=== PATIENT | male | born 1985 | race Hispanic/Latino ===

== ENCOUNTER 2020-01-29 20:51 | Inpatient (IN) | payer OTHER, SELFPAY ==
[2020-01-29 21:26] LABS: Hemoglobin 8.2 g/dL (14.0-18.0); Mean Corpuscular HGB CONC 33.6 g/dL (32.0-36.0); Mean Corpuscular Hemoglobin 32.9 pg (27.0-31.0); Mean Corpuscular Volume 97.9 fL (78.0-98.0); RBC Distribution Width 12.1 % (11.5-14.5); White Blood Cell (WBC) Count 8.8 thou/uL (4.8-10.8)
[2020-01-29] MEDS ORDERED: Piperacillin/Tazobactam 3.375 GM VIAL ONE (21:27)
[2020-01-29 21:41] LABS: Hemoglobin A1c 4.6 % (4.0-6.0)
[2020-01-29 21:51] LABS: Mean Platelet Volume 8.4 fL (7.4-10.4); Platelet Count 67 thou/uL (130-400)
[2020-01-29 21:53] LABS: ALT (SGPT) 16 U/L (8-55); AST (SGOT) 70 U/L (5-34); Albumin 2.2 g/dL (3.5-5.0); Alkaline Phosphatase 385 U/L (40-110); Anion Gap 11 mmol/L (10-20); BUN (Urea Nitrogen) 11 mg/dL (8.9-20.6); Band 13 % (5-11); Bilirubin, Total 1.6 mg/dL (0.2-1.2); Calc. Creatinine Clearance 0 mL/min (70-130); Calcium 7.2 mg/dL (7.8-10.44); Carbon Dioxide 20 mmol/L (22-29); Chloride 109 mmol/L (98-107); Eosinophils 4 % (0-10); Estimated GFR-MDRD Greater than 90; Globulin 5.1 g/dL (2.4-3.5); Glucose 115 mg/dL (70-105); Lymphocytes 20 % (21-51); MDiff Complete? YES; Monocytes 16 % (0-10); Neutrophil 44 % (42-75); Platelet Morphology Comment Appears Decreased; Polychromasia MODERATE = 3-4 cells (100X) (0-2/hpf); Potassium 3.9 mmol/L (3.5-5.1); Protein, Total 7.3 g/dL (6.0-8.3); Reactive Lymphocytes 3 % (0-10); Sodium 136 mmol/L (136-145)
[2020-01-29] MEDS ORDERED: Lorazepam 2 MG/ML VIAL ONE (23:57)
[2020-01-30] MEDS ORDERED: Acetaminophen 650 MG Suppository PR PRN (03:08)
[2020-01-30] MEDS ORDERED: Lorazepam 2 MG/ML VIAL SLOW IVP PRN (03:15)
[2020-01-30 03:23] LABS: Bacteria/HPF 1+ HPF (None Seen); Bilirubin Negative (Negative); Blood, Urine 3+ (Negative); Clarity Clear (Clear); Glucose, Urine (Dipstick) Normal (Negative); Ketone, Urine Negative (Negative); Leukocyte Negative Leu/uL (Negative); Nitrite Negative (Negative); Protein, Urine (Dipstick) Negative (Neg-Trace); RBC/HPF 21-50 HPF (0-3); Specific Gravity, Urine 1.007 (1.002-1.036); Squamous Epithelial None Seen HPF (0-3); Urobilinogen Normal mg/dL (Less than 2); WBC/HPF 0-3 HPF (0-3); pH, Urine 5.5 (5.0-9.0)
[2020-01-30 03:24] LABS: Urine Culture Reflex Yes Yes
[2020-01-30] MEDS ORDERED: Potassium Chloride 20 MEQ in Premix Bag 1 BAG IVPB SCH ×2 (03:30→06:30)
[2020-01-30 03:33] LABS: Amphetamine Not Detected (NotDetected); Barbiturates Screen Not Detected (NotDetected); Benzodiazepine Screen Not Detected (NotDetected); Cocaine Metabolite Screen Not Detected (NotDetected); Medtox Control Line Valid? VALID (VALID); Medtox Reader # READER 4; Methadone Not Detected (NotDetected); Methamphetamine Not Detected (NotDetected); Opiate Screen Not Detected (NotDetected); Oxycodone Screen Not Detected (NotDetected); Phencyclidine (PCP) Not Detected (NotDetected); THC/Cannabinoid Screen Not Detected (NotDetected); Tricyclic Screen Not Detected (NotDetected)
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
[2020-01-30 03:43] VITALS: BMI 40.0
[2020-01-30 04:13] LABS: INR-International Normal Ratio 1.6; Prothrombin Time 19.1 sec (12.0-14.7)
[2020-01-30 04:14] LABS: PTT 53.7 sec (22.9-36.1)
[2020-01-30] MEDS: Piperacillin/Tazobactam 3.375 GM in Sodium Chloride 0.9% 100 ML IVPB SCH ×4 (04:26→21:10)
[2020-01-30] MEDS: Sodium Chloride 0.45% 1,000 ML IV SCH ×3 (04:26→20:40)
[2020-01-30 04:29] LABS: ALT (SGPT) 13 U/L (8-55); AST (SGOT) 56 U/L (5-34); Albumin 1.8 g/dL (3.5-5.0); Alcohol 271 mg/dL (Less than 10); Alkaline Phosphatase 306 U/L (40-110); Bilirubin, Direct 1.2 mg/dL (0.1-0.3); Bilirubin, Total 1.3 mg/dL (0.2-1.2); Protein, Total 6.4 g/dL (6.0-8.3)
[2020-01-30 04:30] LABS: Anion Gap 10 mmol/L (10-20); BUN (Urea Nitrogen) 9 mg/dL (8.9-20.6); Calc. Creatinine Clearance 261 mL/min (70-130); Carbon Dioxide 21 mmol/L (22-29); Chloride 114 mmol/L (98-107); Estimated GFR-MDRD Greater than 90; Glucose 87 mg/dL (70-105); Lipase 29 U/L (8-78); Potassium 3.6 mmol/L (3.5-5.1); Sodium 141 mmol/L (136-145)
[2020-01-30 04:41] LABS: Band 5 % (5-11); Eosinophils 3 % (0-10); Hemoglobin 7.4 g/dL (14.0-18.0); Hypochromia SLIGHT = 6-15 cells (100X) (0-5/hpf); Lymphocytes 21 % (21-51); MDiff Complete? YES; Mean Corpuscular HGB CONC 32.7 g/dL (32.0-36.0); Mean Corpuscular Hemoglobin 32.2 pg (27.0-31.0); Mean Corpuscular Volume 98.4 fL (78.0-98.0); Mean Platelet Volume 8.3 fL (7.4-10.4); Monocytes 8 % (0-10); Neutrophil 63 % (42-75); Platelet Count 46 thou/uL (130-400); Platelet Morphology Comment Appears Adequate; RBC Distribution Width 11.9 % (11.5-14.5); Red Blood Cell (RBC) Count 2.29 mill/uL (4.70-6.10); White Blood Cell (WBC) Count 5.7 thou/uL (4.8-10.8)
--- NOTE | 2020-01-30 07:42 | ULT ---
DOPPLER VENOUS ULTRASOUND OF BOTH LOWER EXTREMITIES: Date: 01/30/2020 INDICATION: Bilateral lower extremity pain and edema. COMPARISON: None. TECHNIQUE: Neal scale, color Doppler, and vascular duplex with spectral analysis was performed of the deep venou s structures of the bilateral lower extremities. The common femoral vein, superficial femoral vein, p roximal greater saphenous vein, proximal greater profunda vein, popliteal, and posterior tibial veins were assessed. FINDINGS: There are mildly prominent lymph nodes within the bilateral inguinal regions. There is normal [place], flow, and augmentation seen within the deep venous structures of both lower extremities. There is subcutaneous edema seen within the soft tissues of both forelegs. IMPRESSION: 1. No evidence of deep venous thrombosis within both lower extremities. 2. Bilateral foreleg subcutaneous edema. 3. Bilateral inguinal lymphadenopathy. POS: BH
[2020-01-30] MEDS: Famotidine/PF 20 mg/2ml Vial SLOW IVP SCH ×2 (08:13→20:37)
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
[2020-01-30] MEDS: Acetaminophen 325 MG TAB PO PRN ×3 (09:28→20:38)
[2020-01-30 17:10] LABS: SARS-CoV-2 MS2 Positive; SARS-CoV-2 N Gene Negative; SARS-CoV-2 S Gene Negative; SARS-CoV-2 by NAA Not Detected (NotDetected); SARS-CoV-2 orf1ab Negative
[2020-01-30 23:37] LABS: Vancomycin, Trough 30.6 ug/mL
[2020-01-31] MEDS: Piperacillin/Tazobactam 3.375 GM in Sodium Chloride 0.9% 100 ML IVPB SCH ×4 (03:45→21:30)
[2020-01-31] MEDS: Acetaminophen 325 MG TAB PO PRN ×2 (04:41→14:06)
[2020-01-31 06:07] LABS: Vancomycin, Trough 15.9 ug/mL
[2020-01-31] MEDS: Vancomycin 1.5 GRAM/300 ML BAG 1.5 GM in Premix Bag 1 BAG IVPB SCH ×3 (06:35→23:09)
[2020-01-31] MEDS: Famotidine/PF 20 mg/2ml Vial SLOW IVP SCH ×2 (09:12→23:10)
--- NOTE | 2020-01-31 10:04 | CON ---
DATE OF CONSULTATION: 01/31/2020 CHIEF COMPLAINT: Right lower extremity wound. HISTORY OF PRESENT ILLNESS: This is a 34-year-old male with a longstanding history of venous stasis disease to the right lower extremity. He has never had any scheduled treatment for it. He notes increasing size of ulcer on the right lower extremity. He is admitted for lower extremity wound infection. PAST MEDICAL HISTORY: None otherwise. PAST SURGICAL HISTORY: None. ALLERGIES: NO KNOWN DRUG ALLERGIES. SOCIAL HISTORY: Admitted to drinking heavily at times. No other drugs. REVIEW OF SYSTEMS: Ten-system review of systems is otherwise negative unless described above. PHYSICAL EXAMINATION: VITAL SIGNS: Pulse 107, blood pressure is 122/75, he is afebrile. HEENT: Sclerae anicteric. Oropharynx clear. NECK: No lymphadenopathy. CHEST: Clear. HEART: Regular rate. ABDOMEN: Soft and nondistended. EXTREMITIES: Examination of bilateral lower extremity shows there to be chronic venous stasis changes to the right lower extremity, there is an ulcer to the pretibial region with some eschar present. No obvious purulence. No bulla. No crepitance. Peripheral pulses are weakly palpable. LABORATORY DATA: White blood cell count yesterday was 5.7, hemoglobin 7.4 with normal differential. Creatinine 0.72. Ultrasound shows no obvious lower extremity DVT. ASSESSMENT: Severe chronic venous stasis changes to bilateral lower extremity with venous stasis ulcer. PLAN: Typical treatment for an ulcer is enzymatic debridement, plus or minus wound VAC, compression dressings often help heal the ulcer as the edema improves. We will obtain duplex ultrasound of the right lower extremity to rule out vascular disease prior to compression placement. Job ID: [id number]
--- NOTE | 2020-01-31 12:34 | ULT ---
US Arterial Doppler Lower Ext History: Arterial vascular disease Comparison: None. Findings: Real-time grayscale, color and spectral analysis of the bilateral lower extremity arterial system was performed. RIGHT LEG: Common femoral artery has a biphasic waveform with peak systolic velocity of 135 cm/sec. Proximal femoral artery peak systolic velocity is 202 cm/sec with monophasic waveform. Mid femoral artery peak systolic velocity is 213 cm/sec with monophasic waveform. Distal femoral artery peak systolic velocity is 143 cm/sec with monophasic waveform. Popliteal artery peak systolic velocity is 137 cm/sec with monophasic waveform. Posterior tibial artery peak systolic velocity is 138 cm/sec with monophasic waveform. Anterior tibial artery peak systolic velocity is 120 cm/sec with monophasic waveform. Dorsalis pedis artery peak systolic velocity is 132 cm/sec with monophasic waveform. LEFT LEG: Common femoral artery peak systolic velocity is 204 cm/sec with triphasic waveform. Proximal femoral artery peak systolic velocity is 132 cm/sec with triphasic waveform. Mid femoral artery peak systolic velocity is 131 cm/sec with triphasic waveform. Distal femoral artery peak systolic velocity is 108 cm/sec with triphasic waveform. Popliteal artery peak systolic velocity is 142 cm/sec with triphasic waveform. Posterior tibial artery peak velocity is 101 cm/sec with triphasic waveform. Anterior tibial artery peak velocity is 147 cm/sec with triphasic waveform. Dorsalis pedis artery peak systolic velocity is 125 cm/sec with triphasic waveform. Impression: 1. Abnormal elevation of peak systolic velocities of the trifurcations can be seen with medial arteri al sclerosis. 2. Abnormal elevated peak systolic velocities within the left common femoral artery and right femoral artery may be sequela of underlying hypertension versus a more proximal stenosis. 3. No significant calcific plaque. 4. Adequate flow to the feet bilaterally. Transcribed Date/Time: 01/31/2020 1:43 PM
--- NOTE | 2020-01-31 15:33 | PDOC.HOSPP ---
- Subjective Encounter Date: 01/31/20 Encounter Time: 09:30 Subjective: Patient was seen for follow-up regarding leg ulcer. He denies any fevers or chills. Denies any nausea or vomiting. - Objective Vital Signs & Weight: Vital Signs (12 hours) Temp Pulse Resp BP BP Pulse Ox 01/31/20 13:05 98.3 F 111 H 18 118/59 L 97 01/31/20 11:45 118/59 L 01/31/20 09:11 122/75 01/31/20 08:03 97.5 F L 107 H 18 122/75 99 01/31/20 04:31 99.2 F 96 18 126/77 97 01/31/20 04:00 126/77 Weight Admit Weight 279 lb 3.2 oz Weight 279 lb 3.2 oz I&O: 01/30/20 01/31/20 02/01/20 06:59 06:59 06:59 Intake Total 2360 Balance 2360 Result Diagrams: 01/30/20 03:54 01/30/20 03:54 Additional Labs: Labs and MARs reviewed by va Hospitalist ROS - Review of Systems Constitutional: denies: fever, chills, sweats, weakness, malaise Cardiovascular: denies: chest pain, palpitations, orthopnea, paroxysmal noc. dyspnea, edema, light headedness Gastrointestinal: denies: nausea, vomiting, abdominal pain, diarrhea, constipation, melena, hematochezia Genitourinary: denies: dysuria, frequency, incontinence, hematuria, retention Skin: reports: lesions. denies: rash, alyssa, bruising - Medication Medications: Active Medications Generic Name Dose Route Start Last Admin Trade Name Freq PRN Reason Stop Dose Admin Acetaminophen 650 mg 01/30/20 03:08 01/31/20 14:06 Tylenol PO 650 mg Q4H PRN Administration Headache/Fever/Mild Pain (1-3) Famotidine 20 mg 01/30/20 09:00 01/31/20 09:12 Pepcid SLOW IVP 20 mg Q12HR FLAKO Administration Piperacillin Sod/Tazobactam 100 mls @ 200 mls/hr 01/30/20 04:00 01/31/20 09: 11 Sod 3.375 gm/ Sodium Chloride IVPB 100 mls 0400,1000,1600,2200 FLAKO Administration Sodium Chloride 1,000 mls @ 75 mls/hr 01/30/20 03:45 01/30/20 20:40 1/2 Normal Saline IV 1,000 mls .[id number] FLAKO Administration Vancomycin HCl 1.5 gm/ Device 300 mls @ 200 mls/hr 01/31/20 06:00 01/31/20 14 :03 IVPB 300 mls Q8HR FLAKO Administration - Exam General - other findings: Morbid obesity Eye: anicteric sclera ENT: moist mucosa Neck: supple Heart: RRR, no gallops, no rubs, normal peripheral pulses Respiratory: CTAB, no wheezes, no rales, no ronchi Gastrointestinal: soft, non-tender, normal bowel sounds, no palpable masses Skin - other findings: Wound as documented Psychiatric: normal affect, normal behavior, oriented to person, oriented to place Hosp A/P - Plan continue antibiotics, out of bed/ambulate -Assessment (1) Wound of right leg Code(s): S81.801A - UNSPECIFIED OPEN WOUND, RIGHT LOWER LEG, INITIAL ENCOUNTER Status: Acute (2) Bilateral leg edema Code(s): R60.0 - LOCALIZED EDEMA Status: Acute (3) Anemia Code(s): D64.9 - ANEMIA, UNSPECIFIED Status: Chronic (4) Thrombocytopenia Code(s): D69.6 - THROMBOCYTOPENIA, UNSPECIFIED Status: Chronic (6) Elevated LFTs Code(s): R79.89 - OTHER SPECIFIED ABNORMAL FINDINGS OF BLOOD CHEMISTRY Status : Chronic (7) Obesity Code(s): E66.9 - OBESITY, UNSPECIFIED Status: Chronic (8) Alcohol consumption heavy Code(s): Z78.9 - OTHER SPECIFIED HEALTH STATUS Status: Chronic - Plan Plan: Continue Zosyn and vancomycin Patient has nasal bone fracture with minimal impaction Start folic acid for folic acid deficiency Follow wound cultures Check a.m. labs ASE protocol and PRN ativan. Ambulate patient. He is not on mechanical SCDs due to lower extremity lesions and is not on pharmaco prophylaxis due to thrombocytopenia
[2020-01-31] MEDS: Multivitamins, Adult 10 ML, Folic Acid 1 MG, Thiamine HCl 100 MG in Dextrose 5 %-0.45 %... IV SCH (17:54)
[2020-01-31] MEDS ORDERED: chlordiazePOXIDE HCl 25 MG CAP PO SCH ×2 (18:00→20:30)
[2020-01-31] MEDS: chlordiazePOXIDE HCl 25 MG CAP PO SCH (20:52)
[2020-01-31] MEDS: Sodium Chloride 0.45% 1,000 ML IV SCH (21:30)
[2020-01-31] MEDS: Lorazepam 2 MG/ML VIAL SLOW IVP PRN (23:10)
[2020-02-01] MEDS ORDERED: Lorazepam 2 MG/ML VIAL SLOW IVP SCH (00:30)
[2020-02-01] MEDS: Piperacillin/Tazobactam 3.375 GM in Sodium Chloride 0.9% 100 ML IVPB SCH ×2 (04:52→09:35)
[2020-02-01 05:44] LABS: #Basophils 0.1 thou/uL (0.0-0.2); #Eosinphils 0.3 thou/uL (0.0-0.7); #Monocytes 0.7 thou/uL (0.11-0.59); #Neutrophils 4.1 thou/uL (1.40-6.50); %Basophils 1.1 % (0.0-1.0); %Eosinophils 5.2 % (0.0-10.0); %Lymphocytes 15.7 % (21.0-51.0); %Monocytes 11.5 % (0.0-10.0); %Neutrophils 66.5 % (42.0-75.0); Hemoglobin 7.2 g/dL (14.0-18.0); Mean Corpuscular HGB CONC 32.4 g/dL (32.0-36.0); Mean Corpuscular Hemoglobin 31.9 pg (27.0-31.0); Mean Corpuscular Volume 98.7 fL (78.0-98.0); Mean Platelet Volume 8.5 fL (7.4-10.4); Platelet Count 62 thou/uL (130-400); RBC Distribution Width 12.2 % (11.5-14.5); Red Blood Cell (RBC) Count 2.24 mill/uL (4.70-6.10); White Blood Cell (WBC) Count 6.2 thou/uL (4.8-10.8)
[2020-02-01 06:01] LABS: Anion Gap 10 mmol/L (10-20); BUN (Urea Nitrogen) 8 mg/dL (8.9-20.6); Calc. Creatinine Clearance 198 mL/min (70-130); Calcium 6.7 mg/dL (7.8-10.44); Carbon Dioxide 21 mmol/L (22-29); Chloride 109 mmol/L (98-107); Estimated GFR-MDRD Greater than 90; Glucose 70 mg/dL (70-105); Sodium 137 mmol/L (136-145)
[2020-02-01 06:06] LABS: Vancomycin, Trough 33.7 ug/mL
[2020-02-01 06:07] LABS: Potassium 2.9 mmol/L (3.5-5.1)
[2020-02-01] MEDS ORDERED: Potassium Chloride 20 MEQ TAB PO SCH (06:30)
[2020-02-01] MEDS: Vancomycin 1.5 GRAM/300 ML BAG 1.5 GM in Premix Bag 1 BAG IVPB SCH (07:29)
[2020-02-01] MEDS ORDERED: Clopidogrel Bisulfate 75 MG TAB ONE (08:19)
[2020-02-01] MEDS: Famotidine/PF 20 mg/2ml Vial SLOW IVP SCH ×2 (08:36→20:52)
[2020-02-01] MEDS: Lorazepam 2 MG/ML VIAL SLOW IVP PRN ×2 (08:47→21:37)
[2020-02-01] MEDS: Sodium Chloride 0.45% 1,000 ML IV SCH (09:35)
--- NOTE | 2020-02-01 10:13 | PRG ---
DATE OF SERVICE: 02/01/2020 SUBJECTIVE: Mr. Kaiser Gaspar' wound is seen today, and I talked to him with the regulatory affairs intern. He has no complaints. OBJECTIVE: VITAL SIGNS: He is afebrile. Vital signs are stable EXTREMITIES: Examination of his lower extremity wounds reveals persistent extensive venous stasis disease with ulcers to the medial and lateral foot, noninfected as well as to the pretibial region. In the pretibial region, a small amount of fibrinous slough is able to be sloughed off without difficulty, and the wounds are rewrapped. ASSESSMENT: Chronic venous stasis ulcers and disease to bilateral lower extremities. PLAN: This is a long-term chronic problem. He will need referral to be seen in the outpatient wound care clinic for compression stockings and wound care for these ulcers, but no other surgical treatment needed at this time. Job ID: [id number]
[2020-02-01] MEDS: chlordiazePOXIDE HCl 25 MG CAP PO SCH ×3 (11:54→20:50)
[2020-02-01] MEDS ORDERED: Iopamidol-370 76% 500 ML 1 ML ONE (12:06)
--- NOTE | 2020-02-01 13:57 | PDOC.HOSPP ---
- Subjective Encounter Date: 02/01/20 Encounter Time: 09:00 Subjective: awake, responds to verbal stimuli is not steady to stand or walk - Objective Vital Signs & Weight: Vital Signs (12 hours) Temp Pulse Resp BP Pulse Ox 02/01/20 11:00 99.2 F 90 20 117/74 99 02/01/20 07:35 98.7 F 89 17 134/76 96 Weight Admit Weight 279 lb 3.2 oz Weight 279 lb 3.2 oz I&O: 01/31/20 02/01/20 02/02/20 06:59 06:59 06:59 Intake Total 2360 4425 Balance 2360 4425 Result Diagrams: 02/01/20 05:28 02/01/20 05:28 Hospitalist ROS - Medication Medications: Active Medications Generic Name Dose Route Start Last Admin Trade Name Freq PRN Reason Stop Dose Admin Acetaminophen 650 mg 01/30/20 03:08 01/31/20 14:06 Tylenol PO 650 mg Q4H PRN Administration Headache/Fever/Mild Pain (1-3) Chlordiazepoxide HCl 25 mg 01/31/20 21:00 02/01/20 11:54 Librium PO 25 mg TID FLAKO Administration Famotidine 20 mg 01/30/20 09:00 02/01/20 08:36 Pepcid SLOW IVP 20 mg Q12HR FLAKO Administration Piperacillin Sod/Tazobactam 100 mls @ 200 mls/hr 01/30/20 04:00 02/01/20 09: 35 Sod 3.375 gm/ Sodium Chloride IVPB 100 mls 0400,1000,1600,2200 FLAKO Administration Sodium Chloride 1,000 mls @ 75 mls/hr 01/30/20 03:45 02/01/20 09:35 1/2 Normal Saline IV 1,000 mls .[id number] FLAKO Administration Multivitamins 10 ml/ Folic 1,011.2 mls @ 75 mls/hr 01/31/20 15:45 01/31/20 17 :54 Acid 1 mg/ Thiamine HCl 100 mg IV 1,011.2 mls / Dextrose/Sodium Chloride Q24HR FLAKO Administration Lorazepam 1 mg 01/31/20 20:30 02/01/20 08:47 Ativan SLOW IVP 1 mg Q6H PRN Administration Anxiety/Agitation - Exam General Appearance: awake alert, ill appearing Eye: anicteric sclera ENT: no oropharyngeal lesions, dry oral mucosa Neck: supple, no JVD Heart: RRR, no murmur Respiratory: no wheezes, no rales Gastrointestinal: soft, non-tender, non-distended, normal bowel sounds, no guarding, no rigidity Extremities: no cyanosis, 1+ LE edema Extremities - other findings: has dressing over both LE ulcerations Neurological: cranial nerve grossly intact, no focal deficits Hosp A/P (1) Venous stasis ulcer Code(s): I83.009 - VARICOSE VEINS OF UNSP LOWER EXTREMITY W ULCER OF UNSP SITE; L97.909 - NON-PRS CHRONIC ULC UNSP PRT OF UNSP LOW LEG W UNSP SEVERITY Status : Chronic Plan: b/l (2) Bacteremia Code(s): R78.81 - BACTEREMIA Status: Acute (3) Sepsis Code(s): A41.9 - SEPSIS, UNSPECIFIED ORGANISM Status: Acute Qualifiers: Sepsis type: sepsis due to unspecified organism Sepsis acute organ dysfunction status: without acute organ dysfunction Qualified Code(s): A41.9 - Sepsis, unspecified organism (4) Alcohol abuse Code(s): F10.10 - ALCOHOL ABUSE, UNCOMPLICATED Status: Chronic (5) Cirrhosis Code(s): K74.60 - UNSPECIFIED CIRRHOSIS OF LIVER Status: Suspected Qualifiers: Hepatic cirrhosis type: alcoholic cirrhosis (6) Anemia Code(s): D64.9 - ANEMIA, UNSPECIFIED Status: Chronic Qualifiers: Anemia type: unspecified type Qualified Code(s): D64.9 - Anemia, unspecified (7) Thrombocytopenia Code(s): D69.6 - THROMBOCYTOPENIA, UNSPECIFIED Status: Chronic (8) Obesity Code(s): E66.9 - OBESITY, UNSPECIFIED Status: Chronic Qualifiers: Obesity classification: adult class 3 (BMI >= 40) - Plan is awake, mostly oriented but is not steady to mobilize will remove restraints and closely monitor him, may need 1:1 sitter if he gets anxious or agitated is on banana bag, librium, ase protocol has chr venous ulcers on both LE unclear source of proteus bacteremia, likely uti, CT stone protocol to r/o obstr uropathy continue vanc and zosyn, iv fluids for now, may dc iv fluids if he is eating and drinking well hemostable
[2020-02-01] MEDS ORDERED: Vancomycin 1 GM in Premix Bag 1 BAG IVPB SCH (14:00)
--- NOTE | 2020-02-01 16:04 | CON ---
DATE OF CONSULTATION: REASON FOR CONSULTATION: Bacteremia. HISTORY OF PRESENT ILLNESS: A 34-year-old with history of alcoholism, obesity, who does not recall exactly the circumstances that led him to be brought to the emergency room, but in the history from the emergency room, the main concerns were with his lower extremity wounds. On arrival, his blood pressure was 140/73, pulse 107, temperature 98.8, and O2 saturations were 98% on room air. He did not appear in distress, disheveled, bilateral lower extremity swelling and findings consistent with stasis dermatitis and central round shaped 2.5 cm ulcerated area in the anterior estevez of right leg. EKG was sinus rhythm, QTc 454. Facial bones x-rays were done and those included a right nasal bone fracture of indeterminate age. The venous ultrasound lower extremities with no evidence of DVT. We have two sets of blood cultures positive, one was probably contaminant with corynebacterium and Micrococcus, the other with Proteus mirabilis. The first was from right arm, the second from the left arm. Currently, Mr. Saab is drowsy, but he is arousable. He answered all my questions in Qat[place] and he did not remember exactly why he came to the hospital. He knew he was in [facility] in [place], did not know the name of the city though. He lives with some friends and works in a farm intermittently, odd jobs. MEDICAL HISTORY: Did not have any actually recorded medical history, although he does have evidence of venous stasis dermatitis, lipodermatosclerosis. He also has an evidence of obesity and alcoholism. ALLERGIES: NONE. CURRENT MEDICATIONS: 1. Zosyn. 2. Vancomycin. 3. Famotidine. SOCIAL HISTORY: He works in a farm. He drinks heavily every day at least 12 beers a day. Smokes intermittently. No other drug use. He is not , no children. PHYSICAL EXAMINATION: VITAL SIGNS: T-max 101 when he came in, now he has been afebrile since; blood pressure 117/74; pulse 90; respirations 17 to 20; O2 saturation 99%. SKIN: Shows findings consistent with lipodermatosclerosis in lower extremities, particularly on the right side, there is a central ulcerated area in the anterior lower leg with light pink base. No undermining. Indurated borders. No obvious evidence of cellulitis. Pulses are 1+ in dorsalis pedis. There is no lymphadenopathy. HEENT: Ocular movements conjugate. Sclerae white. Pupils are equal. Oral cavity, still quite few teeth in place with some periodontitis. Oral mucosa normal. NECK: Supple. LUNGS: Symmetric. Clear breath sounds. HEART: S1 and S2. Regular rate. No S3 or S4. ABDOMEN: Soft, quite prominent panniculus, bruising from Lovenox injection most likely. No tenderness. No bladder distention. No genital abnormalities. No joint inflammatory activity. EXTREMITIES: He moves extremities, but he is diffusely weak. He is awake, knows his name. He knew he was in [facility] and the year and a month. LABORATORY DATA: Urinalysis; 0 to 3 wbc's. White cell count 8.8 and now 6.2, hemoglobin 8.2, platelets 67 and 62, 44% neutrophils, 13% bands. INR 1.6. Sodium 141, creatinine 0.72, bilirubin 1.3, AST 56, ALT 13, alkaline phosphatase 306, albumin 1.8. Folate was low at 5.1. Toxicology with plasma alcohol 271. ASSESSMENT: Alcoholism, evidence of chronic liver disease, alcoholic hepatitis, possibility of plus-minus cirrhosis, obesity, Proteus mirabilis bacteremia of uncertain primary site, venous stasis ulceration with lipodermatosclerosis in the lower extremities. DISCUSSION: Differential diagnosis includes intraabdominal inflammatory process , biliary tract, liver/hepatic abscess, urinary tract is less likely in view of the absence of pyuria, but not completely ruled out, cellulitis/abscess are less likely in the absence of overt inflammatory changes. We will check CT abdomen and pelvis with contrast and switch him to oral quinolone. Job ID: [id number] [facility]
[2020-02-01] MEDS: Multivitamins, Adult 10 ML, Folic Acid 1 MG, Thiamine HCl 100 MG in Dextrose 5 %-0.45 %... IV SCH (16:13)
--- NOTE | 2020-02-01 20:49 | CT ---
CT Abdomen Pelvis W Con: 02/01/2020 2:55 PM CLINICAL INFORMATION: Abnormal LFTs and bacteremia COMPARISON: None. TECHNIQUE: Multiple contiguous axial images were obtained and a CT of the abdomen and pelvis with IV contrast. Oral contrast was administered. Coronal and sagittal reformats were performed. FINDINGS: This exam is limited secondary to the patient's large body habitus and sides touching the CT gantry. Lower Chest: Trace bilateral pleural effusions with adjacent atelectasis Abdomen: Liver: Cirrhotic without focal liver lesions. There is a recanalized periumbilical vein. There is a s mall amount of ascites. Bile Ducts: Normal caliber. Gallbladder: No calcified gallstones. Normal caliber wall. Pancreas: within normal limits. Spleen: Enlarged measuring 19 cm in length. Adrenals: within normal limits. Kidneys: within normal limits. Pelvis: Reproductive Organs: No pelvic masses. Ureters: within normal limits. Bladder: within normal limits. Peritoneum: No free air, no fluid collection. Bowel: Normal caliber. Mesentery and Retroperitoneum: No enlarged mesenteric or retroperitoneal lymph nodes. Vessels: Normal. Abdominal Wall: within normal limits. Bones: Within normal limits IMPRESSION: Cirrhosis with sequelae of portal hypertension
[2020-02-01] MEDS: Cipro 250 MG TAB PO SCH (20:50)
[2020-02-01] MEDS: Acetaminophen 325 MG TAB PO PRN (20:52)
[2020-02-02] MEDS ORDERED: Diazepam 5 MG TAB PO PRN (01:31)
[2020-02-02] MEDS ORDERED: Diazepam 5 MG TAB PO SCH (01:45)
[2020-02-02] MEDS: Sodium Chloride 0.45% 1,000 ML IV SCH ×2 (05:22→16:47)
[2020-02-02 05:24] LABS: Vancomycin, Trough 6.3 ug/mL
[2020-02-02] MEDS: Cipro 250 MG TAB PO SCH ×2 (05:48→20:15)
[2020-02-02] MEDS: chlordiazePOXIDE HCl 25 MG CAP PO SCH ×3 (08:10→20:15)
[2020-02-02] MEDS: Famotidine/PF 20 mg/2ml Vial SLOW IVP SCH ×2 (08:48→20:15)
[2020-02-02] MEDS ORDERED: Potassium Chloride 20 MEQ TAB PO SCH (10:15)
--- NOTE | 2020-02-02 11:42 | PDOC.HOSPP ---
- Subjective Encounter Date: 02/02/20 Encounter Time: 11:40 Subjective: feels great, wants to go home - Objective Vital Signs & Weight: Vital Signs (12 hours) Temp Pulse Resp BP BP BP Pulse Ox 02/02/20 08:22 100 02/02/20 07:36 98.7 F 94 16 129/86 100 02/02/20 04:45 124/78 02/02/20 04:00 98.7 F 91 20 124/78 98 02/02/20 02:12 84 22 H 98 02/01/20 23:42 98.5 F 92 18 124/81 124/81 97 Weight Admit Weight 279 lb 3.2 oz Weight 279 lb 3.2 oz I&O: 02/01/20 02/02/20 02/03/20 06:59 06:59 06:59 Intake Total 4425 1885 Balance 4425 1885 Result Diagrams: 02/01/20 05:28 02/01/20 05:28 Hospitalist ROS - Medication Medications: Active Medications Generic Name Dose Route Start Last Admin Trade Name Freq PRN Reason Stop Dose Admin Acetaminophen 650 mg 01/30/20 03:08 02/01/20 20:52 Tylenol PO 650 mg Q4H PRN Administration Headache/Fever/Mild Pain (1-3) Chlordiazepoxide HCl 25 mg 01/31/20 21:00 02/02/20 08:10 Librium PO 25 mg TID FLAKO Administration Ciprofloxacin 500 mg 02/01/20 20:00 02/02/20 05:48 Cipro PO 500 mg BID@0600,2000 FLAKO Administration Diazepam 10 mg 02/02/20 01:31 02/02/20 05:48 Valium PO 02/03/20 04:00 10 mg Q4H PRN Administration FOR ASE 10 OR GREATER Famotidine 20 mg 01/30/20 09:00 02/02/20 08:48 Pepcid SLOW IVP Not Given Q12HR [facility] Sodium Chloride 1,000 mls @ 75 mls/hr 01/30/20 03:45 02/02/20 05:22 1/2 Normal Saline IV Not Given .[id number] [facility] Multivitamins 10 ml/ Folic 1,011.2 mls @ 75 mls/hr 01/31/20 15:45 02/01/20 16 :13 Acid 1 mg/ Thiamine HCl 100 mg IV 1,011.2 mls / Dextrose/Sodium Chloride Q24HR FLAKO Administration Lorazepam 1 mg 01/31/20 20:30 02/01/20 21:37 Ativan SLOW IVP 1 mg Q6H PRN Administration Anxiety/Agitation Potassium Chloride 40 meq 02/02/20 10:15 02/02/20 11:28 K-Dur PO 02/02/20 14:00 40 meq NOW FLAKO Administration - Exam Neck: no JVD Heart: RRR, no murmur Respiratory: CTAB Gastrointestinal: soft, non-tender, normal bowel sounds Extremities: no edema Hosp A/P (1) Bacteremia Code(s): R78.81 - BACTEREMIA Status: Acute (2) Wound of right leg Code(s): S81.801A - UNSPECIFIED OPEN WOUND, RIGHT LOWER LEG, INITIAL ENCOUNTER Status: Acute (3) Alcohol abuse Code(s): F10.10 - ALCOHOL ABUSE, UNCOMPLICATED Status: Chronic (4) Thrombocytopenia Code(s): D69.6 - THROMBOCYTOPENIA, UNSPECIFIED Status: Chronic (5) Venous stasis ulcer Code(s): I83.009 - VARICOSE VEINS OF UNSP LOWER EXTREMITY W ULCER OF UNSP SITE; L97.909 - NON-PRS CHRONIC ULC UNSP PRT OF UNSP LOW LEG W UNSP SEVERITY Status : Chronic Qualifiers: Venous stasis ulcer site: calf Laterality: right - Plan cont cipro cont vitamins discuss with ID
[2020-02-02] MEDS: Multivitamins, Adult 10 ML, Folic Acid 1 MG, Thiamine HCl 100 MG in Dextrose 5 %-0.45 %... IV SCH (17:22)
[2020-02-03] MEDS ORDERED: Diazepam 5 MG TAB PO PRN (04:00)
[2020-02-03] MEDS: Sodium Chloride 0.45% 1,000 ML IV SCH (05:02)
[2020-02-03] MEDS: Cipro 250 MG TAB PO SCH (07:13)
[2020-02-03 08:28] VITALS: TEMP 97.8
[2020-02-03] MEDS ORDERED: Magnesium Oxide 400 MG TAB PO SCH (09:00)
[2020-02-03] MEDS: chlordiazePOXIDE HCl 25 MG CAP PO SCH (09:51)
[2020-02-03] MEDS: Famotidine/PF 20 mg/2ml Vial SLOW IVP SCH (09:51)
[2020-02-03] MEDS: Acetaminophen 325 MG TAB PO PRN (10:01)
--- NOTE | 2020-02-03 11:15 | PDOC.HOSPP ---
- Subjective Encounter Date: 02/03/20 Encounter Time: 11:12 Subjective: no fever, etc - Objective Vital Signs & Weight: Vital Signs (12 hours) Temp Pulse Resp BP BP BP Pulse Ox 02/03/20 08:27 97.8 F 101 H 18 131/84 98 02/03/20 08:00 131/84 98 02/03/20 04:00 98.8 F 87 20 127/77 127/77 98 02/03/20 00:00 98.3 F 90 20 132/85 132/85 98 Weight Admit Weight 279 lb 3.2 oz Weight 279 lb 3.2 oz I&O: 02/02/20 02/03/20 02/04/20 06:59 06:59 06:59 Intake Total 1885 1300 Output Total 450 Balance 1885 850 Result Diagrams: 02/01/20 05:28 02/01/20 05:28 Hospitalist ROS - Medication Medications: Active Medications Generic Name Dose Route Start Last Admin Trade Name Freq PRN Reason Stop Dose Admin Acetaminophen 650 mg 01/30/20 03:08 02/03/20 10:01 Tylenol PO 650 mg Q4H PRN Administration Headache/Fever/Mild Pain (1-3) Chlordiazepoxide HCl 25 mg 01/31/20 21:00 02/03/20 09:51 Librium PO 25 mg TID FLAKO Administration Ciprofloxacin 500 mg 02/01/20 20:00 02/03/20 07:13 Cipro PO 500 mg BID@0600,2000 FLAKO Administration Famotidine 20 mg 01/30/20 09:00 02/03/20 09:51 Pepcid SLOW IVP Not Given Q12HR [facility] Sodium Chloride 1,000 mls @ 75 mls/hr 01/30/20 03:45 02/03/20 05:02 1/2 Normal Saline IV 1,000 mls .[id number] FLAKO Administration Multivitamins 10 ml/ Folic 1,011.2 mls @ 75 mls/hr 01/31/20 15:45 02/02/20 17 :22 Acid 1 mg/ Thiamine HCl 100 mg IV 1,011.2 mls / Dextrose/Sodium Chloride Q24HR FLAKO Administration Lorazepam 1 mg 01/31/20 20:30 02/01/20 21:37 Ativan SLOW IVP 1 mg Q6H PRN Administration Anxiety/Agitation Magnesium Oxide 400 mg 02/03/20 09:00 02/03/20 09:51 Magnesium Oxide PO 400 mg DAILY FLAKO Administration Sodium Chloride 10 ml 02/02/20 21:00 02/03/20 09:51 Flush - Normal Saline IVF 10 ml Q12HR FLAKO Administration - Exam General Appearance: awake alert Neck: no JVD Heart: RRR Respiratory: CTAB Gastrointestinal: soft, normal bowel sounds Extremities: no edema Hosp A/P (1) Bacteremia Code(s): R78.81 - BACTEREMIA Status: Acute (2) Wound of right leg Code(s): S81.801A - UNSPECIFIED OPEN WOUND, RIGHT LOWER LEG, INITIAL ENCOUNTER Status: Acute (3) Alcohol abuse Code(s): F10.10 - ALCOHOL ABUSE, UNCOMPLICATED Status: Chronic (4) Thrombocytopenia Code(s): D69.6 - THROMBOCYTOPENIA, UNSPECIFIED Status: Chronic (5) Venous stasis ulcer Code(s): I83.009 - VARICOSE VEINS OF UNSP LOWER EXTREMITY W ULCER OF UNSP SITE; L97.909 - NON-PRS CHRONIC ULC UNSP PRT OF UNSP LOW LEG W UNSP SEVERITY Status : Chronic Qualifiers: Venous stasis ulcer site: calf Laterality: right - Plan cont cipro cont vitamins discuss with ID
[2020-02-03 13:56] VITALS: BP 133/83
--- NOTE | 2020-02-03 13:56 | DIS ---
DATE OF ADMISSION: 01/29/2020 DATE OF DISCHARGE: 02/03/2020 PRIMARY CARE PHYSICIAN: None. DISCHARGE DISPOSITION: Discharged home. DIAGNOSES: Wound on right lower leg, alcohol abuse, alcoholic cirrhosis, peripheral vascular disease, bacteremia with Proteus, and thrombocytopenia secondary to cirrhosis. DISCHARGE MEDICATIONS: Cipro 250 mg p.o. b.i.d. x7 days. HOSPITAL COURSE: The patient was admitted to the emergency room to the hospitalist service due to pain and swelling in both legs. He was intoxicated at the time he was seen. States he drinks a case of beer a day. He was drowsy. His laboratory initially white count 8.8, hemoglobin 8.2, and platelet count 67,000. INR 1.6. Sodium 141, potassium 3.6, chloride 114, CO2 of 21, BUN 9, creatinine 0.72. Liver enzymes; bilirubin 1.3, AST 56, ALT 13, and alkaline phosphatase 306. Plasma alcohol was 271. COVID was negative. Admitting diagnoses; wound on right leg, bilateral leg edema, anemia, thrombocytopenia, elevated liver function test, obesity, heavy alcohol consumption. General Surgery was consulted. ID was consulted. Wound culture was requested. Coags were adjusted. He was seen by Dr. Don Velázquez, General Surgery. He ordered enzymatic debridement, compression dressings, duplex ultrasound of the legs, lower extremity ultrasound. Flow to the legs is adequate. Seen in consultation by Dr. Adán Meza because his blood culture x1 grew Proteus mirabilis. His urine culture was negative. other venous culture grew presumptive micrococcus, presumptive Corynebacterium. Dr. Meza recommended Cipro p.o., abdominal pelvis CT which showed only cirrhosis with portal hypertension. Today, the patient was insistent on going home. He threatened to leave AMA. Again, because of his positive cultures, we gave him a 7-day prescription for Cipro. Case Management is working with nursing services for outpatient wound care. He has been advised to find a PCP and be seen as soon as possible. Job ID: [id number]
--- NOTE | 2020-02-05 06:03 | PQF ---
Dear : Kandis Aguirre Date : 02/05/20 Please exercise your independent, professional judgment in responding to the clarification form. Clinical indicators are provided on the bottom of this form for your review Can you please further clarify if Sepsis is ruled in or ruled out? Sepsis Please check appropriate box(es): [ x] Ruled in diagnosis [ x ] Continue to treat [ ] Resolved [ ] Ruled out diagnosis [ ] Improving [ ] Cannot rule out diagnosis [ ] Other diagnosis [ ] Unable to determine Physician Signature: Date/Time: For continuity of documentation, please document condition throughout progress notes and discharge summary. Thank You. To be completed by CDI/Coding staff for physician review: Present Clinical Indicators - Signs / Symptoms / Labs Results and Location in Medical Record [ x ] VS: BP 120/70, DC 105, RR 22, T 98.4 ED Provider pg.2 [ x ] Sepsis 2/2 wound infection ED Provider pg.2 [ x ] Bacteremia Consult pg.1 01/31 [ x ] Blood culture x1 grew Proteus mirabilis DS pg.1 [ x ] WBC 8.8, 5.7, 6.2 Laboratory [ x ] Lactic acid 1.5 Laboratory [ x ] Sepsis, unspecified organism Hospitalist PN Dr. Rosario pg.4 [ x ] Patient appears drowsy and lethargic HP 01/29 Present Risk Factors Results and Location in Medical Record [ x ] Obesity H and P pg.4 [ x ] Hx of venous stasis Consult pg.1 [ x ] Lower extremity wound infection Consult pg.1 [ x ] Alcoholic cirrhosis DS pg.1 [ x ] PVD DS pg.1 [ x ] Pretibial ulcer Consult 01/30 Present Treatments Results and Location in Medical Record [ x ] Infectious Consult Dr. Meza 01/31 [ x ] Venogram Collected 01/29 [ x ] Lower extremity ultrasound Collected 01/30 [ x ] Zosyn 3.375gm IV SEP 05 [ x ] Vancomycin 2gm IV SEP 05 [ x ] Cipro 500mg PO SEP 05 [ x ] IV Fluids SEP 05 [ x ] Blood culture Microbiology [ x ] Wound culture Microbiology [ x ] Consultants; ID, GI, Pulmonary, Hematology Consult 01/29 CDS/Hand Pleater Signature: Bentley Lam Phone #: [phone] Date: 02/05/20 MTDD
== END 2020-02-03 13:27 | disposition home or self-care (01) | DRG 872 ==
LOC: ERS 20:51 → T4-A 23:25
PROVIDERS: ADMIT Internal Medicine; ATTEND Internal Medicine
DX: A41.59 Other Gram-negative sepsis (principal); L97.819 Non-pressure chronic ulcer of other part of right lower leg with unspecified severity; Z68.41 Body mass index [BMI] 40.0-44.9, adult; I83.018 Varicose veins of right lower extremity with ulcer other part of lower leg; D69.59 Other secondary thrombocytopenia; E53.8 Deficiency of other specified B group vitamins; K70.30 Alcoholic cirrhosis of liver without ascites; D64.9 Anemia, unspecified; K70.10 Alcoholic hepatitis without ascites; F10.229 Alcohol dependence with intoxication, unspecified; Y90.8 Blood alcohol level of 240 mg/100 ml or more; S81.801A Unspecified open wound, right lower leg, initial encounter; X58.XXXA Exposure to other specified factors, initial encounter; I73.9 Peripheral vascular disease, unspecified; Z20.828 Contact with and (suspected) exposure to other viral communicable diseases
CPT/HCPCS: 36415; 36416; 70150; 74177; 80048; 80053; 80076; 80202; 80306; 80307; 81001; 82607; 82746; 83036; 83605; 83690; 83735; 84484; 85025; 85610; 85730; 87040; 87070; 87077; 87086; 87149; 87186; 87205; 87635; 93005; 93923; 93970; 96365; 96366; 96375; J2060; J2543; J3370; J3411; J3475; J3490; J7030; J7042; Q9967; S0028; U0003